=== PATIENT | male | born 1995 | race Caucasian/White ===

== ENCOUNTER 2019-05-27 13:51 | Emergency (ER) | payer OTHER ==
[~2019-05-27] VITALS: Ht 172.7 cm; Wt 89.6 kg
[2019-05-27 14:35] VITALS: BP 133/91
== END 2019-05-27 18:00 | disposition home or self-care (01) ==
LOC: ED 17:45
DX: I86.1 Scrotal varices (principal)
CPT/HCPCS: 76870; 81003; 93975; 99284